=== PATIENT | female | born 1990 | race Caucasian/White ===

== ENCOUNTER 2017-02-21 11:54 | Emergency (ER) | payer OTHER ==
[2017-02-21] MEDS ORDERED: LIDOCAINE 1% INJ-PF (10 MG/ML) 30 ML SDV INJ ONE (12:05)
--- NOTE | 2017-02-21 12:11 | ER Document Report ---
HPI - HPI Pain Level: 4 Notes: Patient is a 26-year-old female who presents the ED complaining of a laceration to her left thumb prior to arrival. Patient states that she was lifting up a recycling bag and reached around the lower part of the back with her left hand when a piece of glass cut the lateral side of her left thumb. Patient states that there is no missing pieces of glass at the time. Patient states that the bleeding has been controlled with a pressure wrap. Patient states that she is still able to move her thumb without any difficulties. Patient denies any significant medical history or drug allergies. She denies any numbness or tingling. ?last tetanus. Denies any headache, fever, chest pain, palpitations, syncope, cough, shortness of breath, wheeze, dyspnea, abdominal pain, nausea/ vomiting/diarrhea, urinary retention, muscle paralysis/weakness, or rash. Patient denies any IV drug use. - ROS Notes: REVIEW OF SYSTEMS: CONSTITUTIONAL : Denies fever, chills, or sweats. Denies recent illness. EENT: Denies eye, ear, throat, or mouth pain or symptoms. Denies nasal or sinus congestion or discharge. Denies throat, tongue, or mouth swelling or difficulty swallowing. CARDIOVASCULAR: Denies chest pain. Denies palpitations or racing or irregular heart beat. Denies ankle edema. RESPIRATORY: Denies cough, cold, or chest congestion. Denies shortness of breath, difficulty breathing, or wheezing. GASTROINTESTINAL: Denies abdominal pain or distention. Denies nausea, vomiting , or diarrhea. Denies blood in vomitus, stools, or per rectum. Denies black, tarry stools. Denies constipation. GENITOURINARY: Denies difficulty urinating, painful urination, burning, frequency, blood in urine, or discharge. MUSCULOSKELETAL: see hpi SKIN: see hpi NEUROLOGICAL: Denies confusion or altered mental status. Denies passing out or loss of consciousness. Denies dizziness or lightheadedness. Denies headache. Denies weakness or paralysis or loss of use of either side. Denies problems with gait or speech. Denies sensory loss, numbness, or tingling. ALL OTHER SYSTEMS REVIEWED AND NEGATIVE. Dictation was performed using [employer] voice recognition software - DERM Skin Color: Normal Past Medical History - Social History Smoking Status: Unknown if Ever Smoked Family History: Reviewed & Not Pertinent Patient has suicidal ideation: No Patient has homicidal ideation: No Renal/ Medical History: Denies: Hx Peritoneal Dialysis Vertical Provider Document - CONSTITUTIONAL Agree With Documented VS: Yes Notes: PHYSICAL EXAMINATION: GENERAL: Well-appearing, well-nourished and in no acute distress. A&Ox4 LUNGS: Breath sounds clear to auscultation bilaterally and equal. No wheezes rales or rhonchi. HEART: Regular rate and rhythm without murmurs, rubs, gallops. Musculoskeletal: Lt thumb: FROM to passive/active. Strength 5+/5. N/V intact distal. + 1.5cm superficial laceration to left lateral thumb. Extremities: No cyanosis, clubbing, or edema b/l. Peripheral pulses 2+. Capillary refill less than 3 seconds. NEUROLOGICAL: Cranial nerves grossly intact. Normal speech, normal gait. Normal sensory, motor exams PSYCH: Normal mood, normal affect. SKIN: see MSK exam. - INFECTION CONTROL TRAVEL OUTSIDE OF THE [place] IN LAST 30 DAYS: No - RESPIRATORY O2 Sat by Pulse Oximetry: 97 Course - Re-evaluation Re-evalutation: 02/21/17 12:50 Patient is an afebrile, well-hydrated, 26-year-old female who presents the ED with a laceration to her left thumb. Vitals are stable. PE is otherwise unremarkable for any obvious neurovascular compromise, tendon/ligament rupture, fracture or dislocation. There is no appreciated foreign bodies by exam and x- ray. X-ray was unremarkable for any acute pathology. Wound was thoroughly irrigated and cleansed. Wound edges approximated appropriately utilizing 5 simple interrupted sutures. Wound dressing was placed and wound instructions was reviewed along with a finger splint. Tdap given. I will send her home with a prophylactic antibiotic of Keflex to take as directed. Conservative measures for symptoms otherwise. Wound recheck with PCM in 2-3 days. Sutures will need removed in 10-12 days. Return to the ED with any worsening/concerning symptoms otherwise as reviewed in discharge. Patient is in agreement. - Vital Signs Vital signs: Temp Pulse Resp BP Pulse Ox 98.4 F 78 20 142/82 H 97 02/21/17 11:55 02/21/17 11:55 02/21/17 11:55 02/21/17 11:55 02/21/17 11:55 Procedures - Immobilization Left Thumb Time completed: 12:45 Pre-Proc Neuro Vasc Exam: Normal Immobilizer type: Other - finger splint Performed by: PCT Post-Proc Neuro Vasc Exam: Normal, Unchanged from pre-exam - Laceration/Wound Repair Left Thumb Time completed: 12:40 Wound length (cm): 1.5 Wound's Depth, Shape: Superficial, Linear Laceration pre-procedure: Sterile PPE donned, Sterile drapes applied, Other - chlorhexadine Anesthetic type: 1% Lidocaine Volume Anesthetic (mLs): 8 Wound explored: Clean, No foreign body removed Irrigated w/ Saline (mLs): 60 Wound Debrided: Minimal Wound Repaired With: Sutures Suture Size/Type: 5:0, Nylon Number of Sutures: 5 Layer Closure?: No Post-procedure wound care: Sterile dressing applied, Splint applied Discharge - Discharge Clinical Impression: Laceration of left thumb Qualifiers: Encounter type: initial encounter Damage to nail status: without damage Foreign body presence: without foreign body Qualified Code(s): S61.012A - Laceration without foreign body of left thumb without damage to nail, initial encounter Condition: Stable Disposition: HOME, SELF-CARE Instructions: Antibiotic Ointment Protection ([facility]), Laceration Care ([facility]), Prophylactic Antibiotic ([facility]), Soap Cleansing ([facility]), Tetanus Immunization Given ([facility]) Additional Instructions: Do not shower or bathe for 24 hours. After 24 hours you may shower but no submersion of the wound under water. Keep the original dressing on the wound for 24 hours unless the drainage soaks through. Change the dressing daily thereafter and keep the knots of the suture material clean from any dried discharge. You may leave the wound open to the air once there is no more discharge. Return to the ED and/or your PCM in 2-3 days for a recheck. Monitor for any signs of worsening pain or redness, purulent drainage, streaks, and/or fever. Return to the ED if noticing any of the above symptoms or as needed. Take medications as directed. Your sutures will need to be removed in 10-12 days. Prescriptions: Cephalexin Monohydrate [Keflex 500 mg Capsule] 500 mg PO BID #14 capsule Forms: Elevated Blood Pressure Referrals: [facility] [Provider Group] - Follow up as needed
--- NOTE | 2017-02-21 12:25 | RADIOLOGY REPORT (SQ) ---
EXAM DESCRIPTION: FINGER LEFT COMPLETED DATE/TIME: 02/21/2017 12:11 pm REASON FOR STUDY: laceration by glass to left thumb COMPARISON: None. NUMBER OF VIEWS: Three views left hand and thumb. LIMITATIONS: Mild external bandage artifact overlies the left thumb. FINDINGS: Normal bone density. No fracture. Allowing for mild artifact, no radiopaque foreign body related to the thumb. OTHER: No other significant finding. IMPRESSION: NORMAL STUDY. TECHNICAL DOCUMENTATION: JOB ID: [id number]
[2017-02-21] MEDS ORDERED: DIPH/PERTUSS(ACELL)/TETANUS VAC/PF 0.5 ML SYR (>=10YO) IM ONE (12:38)
[2017-02-21 13:11] VITALS: BP 126/88
== END 2017-02-21 13:07 | disposition home or self-care (01) ==
LOC: ER 11:54
DX: S61.012A Laceration without foreign body of left thumb without damage to nail, initial encounter (principal); W25.XXXA Contact with sharp glass, initial encounter; Y93.89 Activity, other specified
CPT/HCPCS: 99283; 90471; 73140; 90715; 12001; J3490